=== PATIENT | female | born 1985 | race African-American/Black ===

== ENCOUNTER 2020-11-23 05:33 | Day surgery (SDC) | payer BC, OTHER ==
[2020-11-20 09:29] VITALS: BMI 38.0
[2020-11-23] MEDS ORDERED: ceFAZolin 2 GRAM PREMIX BAG IVPB ONE (10:40)
[2020-11-23] MEDS ORDERED: oxyCODONE HCL 5 MG TABLET PO PRN (11:16)
[2020-11-23] MEDS ORDERED: ONDANSETRON 4 MG/2 ML VIAL IVPUSH PRN (11:16)
[2020-11-23] MEDS ORDERED: ALBUTEROL SO4 0.083% IH SOL 2.5 MG/3 ML VIAL.NEB. NEB ONE (11:20)
[2020-11-23] MEDS ORDERED: LACTATED RINGERS SOLUTION 1,000 ML IV SCH (11:30)
[2020-11-23 17:15] VITALS: BP 119/73; PULSE 89; TEMP 97.8
== END 2020-11-23 16:45 | disposition home or self-care (01) ==
LOC: JASU-SURG 05:33
PROVIDERS: ATTEND Obstetrics & Gynecology
PROC: 0UBM0ZZ Excision of Vulva, Open Approach (ICD-10-PCS; principal; 2020-11-23 10:00)
DX: D28.0 Benign neoplasm of vulva (principal); E11.9 Type 2 diabetes mellitus without complications; J45.909 Unspecified asthma, uncomplicated; Z79.84 Long term (current) use of oral hypoglycemic drugs
CPT/HCPCS: 88307-TC; 88331-TC; 88341-TC; 88342-TC; 94760

== ENCOUNTER → 2022-01-26 | Day surgery (SDC) | payer OTHER, BC | END | disposition home or self-care (01) | LOC: JRADUS-SUR 10:16 | PROVIDERS: ATTEND Obstetrics & Gynecology Gynecologic Oncology | PROC: 0H9T3ZX Drainage of Right Breast, Percutaneous Approach, Diagnostic (ICD-10-PCS; principal; 2022-01-26) | DX: N60.31 Fibrosclerosis of right breast (principal) | CPT/HCPCS: 19083; 77065-TC; 87899; 88305-TC; A4648 ==